=== PATIENT | female | born 1970 ===

== ENCOUNTER 2019-10-29 13:36 | Emergency (ER) | payer MEDICARE, SELFPAY ==
--- NOTE | 2019-10-29 13:42 | ED.UPPEXIN ---
HPI - Extremity Injury (Upper) General Chief Complaint: Wound/Laceration Stated Complaint: left middle finger pain Time Seen by Provider: 10/29/19 13:47 Source: patient and RN notes reviewed Mode of arrival: ambulatory Limitations: no limitations History of Present Illness HPI narrative: 49-year-old female presents with concern for pain at the nail of the third digit of her left hand. Reports she woke up yesterday morning with the symptoms. Reports she bites her nails. Reports pain 8 out of 10. Denies numbness, tingling, decreased range of motion, decreased function of the finger. Denies any intervention. MD complaint: injury to: left and finger Related Data Home Medications Medication Instructions Recorded Confirmed furosemide 20 mg PO DAILY 10/29/19 10/29/19 lisinopril 10 mg PO DAILY 10/29/19 10/29/19 meloxicam 7.5 mg PO DAILY 10/29/19 10/29/19 potassium chloride 10 meq PO DAILY 10/29/19 10/29/19 Allergies Allergy/AdvReac Type Severity Reaction Status Date / Time aspirin Allergy Unknown Rash Verified 10/29/19 13:52 Review of Systems Review of Systems: Narrative: CONSTITUTIONAL: Denies malaise, chills, sweats, or fever. SKIN: Reports pain at the tip of the third digit of left hand below the nailbed. MUSCULOSKELETAL: Denies decreased range of motion, strength NEUROLOGIC: Denies numbness, weakness. All systems reviewed & are unremarkable except as noted in HPI and below PMFSH Family History Family History (Updated 03/28/14 @ 07:13 by DOCTOR UNKNOWN) Father Hypertension Mother Hypertension Family history of heart disease in male family member before age 55 Sibling Hypertension Grandparent Diabetes mellitus Social History Social History Smoking status: Former smoker Smoking end date: 08/01/13 Alcohol intake: never Comments At time of signature, agree with nursing past medical, surgical, social and family history. There is no relevant family history pertinent to the presenting complaint Exam Narrative: Exam Narrative: GENERAL: Well-appearing, well-nourished, and in no acute distress. HEAD: Normocephalic, atraumatic. EYES: PERRLA, conjunctivae clear NECK: Supple. CHEST: Speaks in full sentences. No respiratory distress. HEART: Regular rate and rhythm. Normal and equal peripheral pulses. EXTREMITIES: Third digit of left hand has has normal strength and sensation, no edema, normal range of motion. 5/5 strength with digit flexion and extension. Normal sensation with sensitivity to light touch and pain. No clubbing, cyanosis, or edema noted. No tenderness. Skin intact. Normal digital cascade with flexion of fingers, median, ulnar and radial nerve intact. Normal sensation of each side of finger. Skin warm, dry, pink. Capillary refill less than 3 seconds. SKIN: Warm, dry, no rash. Erythema, edema without fluctuation noted to the medial edge of the nail bed of the third digit of the left hand consistent with paronychia, no concern for felon with no edema or erythema on the palmar aspect of the digit NEURO: Alert and oriented x3. PSYCH: Normal mood and affect Course Course Emergency Course: Patient is aware of diagnosis, understands and agrees to treatment plan. Anticipatory guidance given. Patient agrees to follow-up as directed and is aware of reasons to seek care at the emergency department. Portions of this record may have been created with voice recognition software Vital Signs Vital signs: Vital Signs Temperature 98.7 F 10/29/19 13:46 Pulse Rate 100 10/29/19 13:46 Respiratory Rate 16 10/29/19 13:46 Blood Pressure 109/62 10/29/19 13:46 Pulse Oximetry 99 10/29/19 13:46 Temperature 98.7 F 10/29/19 13:46 Pulse Rate 100 10/29/19 13:46 Respiratory Rate 16 10/29/19 13:46 Blood Pressure 109/62 10/29/19 13:46 Pulse Oximetry 99 10/29/19 13:46 Reviewed. MDM - Extremity Injury (Upper) MDM Narrative Medical decision making narrative: Exam findings show no
[2019-10-29 13:46] VITALS: BP 109/62; PULSE 100; RESP 16; TEMP 37.1; O2SAT 99
== END 2019-10-29 14:04 | disposition home or self-care (01) ==
PROVIDERS: Emergency Provider Nurse Practitioner
DX: L03.012 Cellulitis of left finger (principal); I50.9 Heart failure, unspecified; Z98.84 Bariatric surgery status; M19.90 Unspecified osteoarthritis, unspecified site
CPT/HCPCS: 99203; G0463